=== PATIENT | male | born 1950 | race Caucasian/White ===

== ENCOUNTER 2017-02-11 19:40 | Emergency (ER) | payer MEDICARE ==
[2017-02-11] MEDS ORDERED: Ondansetron INJ* 2 MG/ML VIAL IV ONE ×2 (20:14→23:36)
[2017-02-11] MEDS: Metoclopramide IV* 5 MG/ML 2 ML VIAL IV ONE ×2 (20:25→20:31)
[2017-02-11] MEDS: NS 0.9% 1000 ML* 2,000 ML IV ONE ×2 (20:35→22:43)
[2017-02-11 21:02] LABS: Hematocrit 44 % (42-52); Hemoglobin 15.4 g/dl (14.0-18.0); Mean Corpuscular HGB Conc 35 g/dl (31-36); Mean Corpuscular Hemoglobin 31 pg (27-31); Mean Corpuscular Volume 89 fL (80-94); Mean Platelet Volume 7 um3 (7.4-10.4); Red Blood Count 4.96 10^6/ul (4.0-5.4); Red Cell Distribution Width 14 % (10.5-15); White Blood Count 13.2 10^3/ul (3.5-10.8)
[2017-02-11 21:16] LABS: BUN/Creatinine Ratio 24.1 (8-20); Calcium 9.6 mg/dL (8.6-10.3); EGFR African American 118.8 (>60); EGFR Non-African American 92.4 (>60); Globulin 3.2 g/dL (2-4); Magnesium 1.7 mg/dL (1.9-2.7); Potassium 3.9 mmol/L (3.5-5.0); Total Bilirubin 0.7 mg/dL (0.2-1.0); Total Protein 7.2 g/dL (6.4-8.9)
--- NOTE | 2017-02-11 21:29 | RAD ---
HISTORY: Vomiting COMPARISONS: February 15, 2010 VIEWS: 1: frontal portable view of the chest at 9:02 PM FINDINGS: LINES AND TUBES: None. CARDIOMEDIASTINAL SILHOUETTE: The aorta is tortuous. The cardiomediastinal silhouette is otherwise normal for portable technique. PLEURA: The costophrenic angles are sharp. No pleural abnormalities are noted. LUNG PARENCHYMA: The lungs are clear. ABDOMEN: The upper abdomen is clear. There is no subphrenic gas. BONES AND SOFT TISSUES: No bone or soft tissue abnormalities are noted. IMPRESSION: NO ACTIVE CARDIOPULMONARY DISEASE.
--- NOTE | 2017-02-11 21:30 | RAD ---
HISTORY: Vomiting COMPARISONS: None VIEWS: Frontal views of the abdomen. FINDINGS: BOWEL: There is a nonobstructive bowel gas pattern. There is a large amount of stool within the colon. CALCULI: There are no abnormal calculi. BONES AND SOFT TISSUES: Mild degenerative changes are noted OTHER FINDINGS: The lung bases are clear. There is no subphrenic gas. IMPRESSION: NONOBSTRUCTIVE BOWEL GAS PATTERN
[2017-02-11] MEDS ORDERED: Magnesium Sulfate 1 GM IV* 1 GM/100 ML BAG IV ONE (22:25)
[2017-02-11] MEDS ORDERED: Magnesium Sulfate IV* 0.5 GM/ML 2 ML VIAL (1 GM) ONE (22:35)
[2017-02-11] MEDS ORDERED: Iohexol 300* (CONTRAST) 10 ML SDV IV ONE (22:40)
[2017-02-11] MEDS ORDERED: traMADol TAB* 50 MG PO ONE (23:57)
--- NOTE | 2017-02-12 01:26 | ED ---
Sera Carpio Rebecca, scribed for Anup Chung on 02/11/17 at 2012 . Complex/Multi-Sys Presentation - HPI Summary HPI Summary: Pt is a 66 y/o M BIBA who presents to ED c/o N/V. Symptoms began this morning at 0800 and have been intermittent since onset. Upon EMS, he received a shot which improved sx. Denies diarrhea, CP, SOB, fever and abdominal pain. PSHx hernia repair. Pt reports that he recently lost multiple fingers from the L hand and has been taking Oxycodone with his last dose at 0600 this morning. - History Of Current Complaint Chief Complaint: EDNauseaVomitDiarrh Time Seen by Provider: 02/11/17 19:49 Hx Obtained From: Patient Onset/Duration: Lasting Hours, Still Present Severity Currently: Severe - 01/22 Aggravating Factor(s): Nothing Alleviating Factor(s): Shot given by EMS en route Associated Signs And Symptoms: Negative: SOB, Chest Pain, Diarrhea, Abdominal Pain, Fever - Allergies/Home Medications Allergies/Adverse Reactions: Allergies Allergy/AdvReac Type Severity Reaction Status Date / Time No Known Allergies Allergy Verified 02/11/17 19:53 PMH/Surg Hx/FS Hx/Imm Hx GI History: Reports: Other GI Disorders - Hx hernia History: Reports: Hx Kidney Stones Psychiatric History: Reports: Hx Anxiety, Hx Depression Infectious Disease History: No Infectious Disease History: Denies: Traveled Outside the [place] in Last 30 Days - Family History Known Family History: Positive: Cardiac Disease, Hypertension, Other - Prostate CA - Social History Lives: With Family Substance Use Type: Reports: None Smoking Status (MU): Former Smoker Review of Systems Negative: Fever Negative: Chest Pain Negative: Shortness Of Breath Positive: Vomiting, Nausea. Negative: Abdominal Pain, Diarrhea All Other Systems Reviewed And Are Negative: Yes Physical Exam - Summary Physical Exam Summary: Appearance: Well appearing, no pain distress Skin: warm, dry, reflects adequate perfusion Head/face: normal Eyes: EOMI, DIEUDONNE ENT: dry mucous membranes Neck: supple, nontender Respiratory: CTA, breath sounds present Cardiovascular: RRR, pulses symmetrical Abdomen: nontender, soft Bowel: present Musculoskeletal: strength/ROM intact, splint over the left forearm and hand Neuro: normal, sensory motor intact, A&Ox3 Triage Information Reviewed: Yes Vital Signs On Initial Exam: Initial Vitals Temp Pulse Resp BP Pulse Ox 97.7 F 90 20 136/71 97 02/11/17 19:48 02/11/17 19:48 02/11/17 19:48 02/11/17 19:48 02/11/17 19:48 Vital Signs Reviewed: Yes Diagnostics - Vital Signs Vital Signs Temp Pulse Resp BP Pulse Ox 02/11/17 19:48 97.7 F 90 20 136/71 97 - Laboratory Lab Results: Lab Results 02/11/17 02/11/17 02/11/17 Range/Units 20:54 20:54 20:54 WBC 13.2 H (3.5-10.8) 10^3/ul RBC 4.96 (4.0-5.4) 10^6/ul Hgb 15.4 (14.0-18.0) g/dl Hct 44 (42-52) % MCV 89 (80-94) fL MCH 31 (27-31) pg MCHC 35 (31-36) g/dl RDW 14 (10.5-15) % Plt Count 270 (150-450) 10^3/ul MPV 7 L (7.4-10.4) um3 Neut % (Auto) 88.5 H (38-83) % Lymph % (Auto) 4.7 L (25-47) % [place] % (Auto) 6.6 (1-9) % Eos % (Auto) 0 (0-6) % Baso % (Auto) 0.2 (0-2) % Absolute Neuts (auto) 11.7 H (1.5-7.7) 10^3/ul Absolute Lymphs (auto) 0.6 L (1.0-4.8) 10^3/ul Absolute Monos (auto) 0.9 H (0-0.8) 10^3/ul Absolute Eos (auto) 0 (0-0.6) 10^3/ul Absolute Basos (auto) 0 (0-0.2) 10^3/ul Absolute Nucleated RBC 0 10^3/ul Nucleated RBC % 0 INR (Anticoag Therapy) 0.94 (0.89-1.11) APTT 26.7 (26.0-36.3) seconds Sodium 134 (133-145) mmol/L Potassium 3.9 (3.5-5.0) mmol/L Chloride 103 (101-111) mmol/L Carbon Dioxide 22 (22-32) mmol/L Anion Gap 9 (2-11) mmol/L BUN 20 (6-24) mg/dL Creatinine 0.83 (0.67-1.17) mg/dL Est GFR ( Amer) 118.8 (>60) Est GFR (Non-Af Amer) 92.4 (>60) BUN/Creatinine Ratio 24.1 H (8-20) Glucose 139 H (70-100) mg/dL Lactic Acid (0.5-2.0) mmol/L Calcium 9.6 (8.6-10.3) mg/dL Magnesium 1.7 L (1.9-2.7) mg/dL Total Bilirubin 0.70 (0.2-1.0) mg/dL AST 21 (13-39) U/L ALT 25 (7-52) U/L Alkaline Phosphatase 74 (34-104) U/L Troponin I 0.00 (<0.04) ng/mL Total Protein 7.2 (6.4-8.9) g/dL Albumin 4.0 (3.2-5.2) g/dL Globulin 3.2 (2-4) g/dL Albumin/Globulin Ratio 1.3 (1-3) Lipase 15 (11.0-82.0) U/L 10/30/17 Range/Units 20:54 WBC (3.5-10.8) 10^3/ul RBC (4.0-5.4) 10^6/ul Hgb (14.0-18.0) g/dl Hct (42-52) % MCV (80-94) fL MCH (27-31) pg MCHC (31-36) g/dl RDW (10.5-15) % Plt Count (150-450) 10^3/ul MPV (7.4-10.4) um3 Neut % (Auto) (38-83) % Lymph % (Auto) (25-47) % [place] % (Auto) (1-9) % Eos % (Auto) (0-6) % Baso % (Auto) (0-2) % Absolute Neuts (auto) (1.5-7.7) 10^3/ul Absolute Lymphs (auto) (1.0-4.8) 10^3/ul Absolute Monos (auto) (0-0.8) 10^3/ul Absolute Eos (auto) (0-0.6) 10^3/ul Absolute Basos (auto) (0-0.2) 10^3/ul Absolute Nucleated RBC 10^3/ul Nucleated RBC % INR (Anticoag Therapy) (0.89-1.11) APTT (26.0-36.3) seconds Sodium (133-145) mmol/L Potassium (3.5-5.0) mmol/L Chloride (101-111) mmol/L Carbon Dioxide (22-32) mmol/L Anion Gap (2-11) mmol/L BUN (6-24) mg/dL Creatinine (0.67-1.17) mg/dL Est GFR ( Amer) (>60) Est GFR (Non-Af Amer) (>60) BUN/Creatinine Ratio (8-20) Glucose (70-100) mg/dL Lactic Acid 2.7 H* (0.5-2.0) mmol/L Calcium (8.6-10.3) mg/dL Magnesium (1.9-2.7) mg/dL Total Bilirubin (0.2-1.0) mg/dL AST (13-39) U/L ALT (7-52) U/L Alkaline Phosphatase (34-104) U/L Troponin I (<0.04) ng/mL Total Protein (6.4-8.9) g/dL Albumin (3.2-5.2) g/dL Globulin (2-4) g/dL Albumin/Globulin Ratio (1-3) Lipase (11.0-82.0) U/L Result Diagrams: 02/11/17 20:54 02/11/17 20:54 Lab Statement: Any lab studies that have been ordered have been reviewed, and results considered in the medical decision making process. - Radiology CXR Xray Interpretation: No Acute Changes - NO ACTIVE CARDIOPULMONARY DISEASE. ED physician reviewed this radiology report and agrees. Radiology Interpretation Completed By: Radiologist KUB Xray Interpretation: No Acute Changes - NONOBSTRUCTIVE BOWEL GAS PATTERN ED physician reviewed this radiology report and agrees. Radiology Interpretation Completed By: Radiologist - CT CT abd/pel CT Interpretation: No Acute Changes - There is no bowel obstruction, free air, or free fluid. Normal appendix visualized. Sigmoid diverticulosis and some wall thickening of the proximal to mid sigmoid. Questionable adjacent fatty stranding. Although the findings are borderline, the possibility of very mild or very early sigmoid diverticulitis should be considered. Is there pain in the left lower quadrant? CT Interpretation Completed By: Radiologist - EKG 2029 Cardiac Rate: NL - 90 bpm EKG Rhythm: Sinus Rhythm EKG Interpretation: No acute changes Re-Evaluation - Re-Evaluation First Eval Re-Evaluation Time: 23:34 Change: Unchanged - Still nauseous. Complex Multi-Symp Course/Dx Assessment/Plan: Pt is a 66 y/o M BIBA who presents to ED c/o N/V. Symptoms began this morning at 0800 and have been intermittent since onset. Upon EMS, he received a shot which improved sx. Denies diarrhea, CP, SOB, fever and abdominal pain. PSHx hernia repair. Pt reports that he recently lost multiple fingers from the L hand and has been taking Oxycodone with his last dose at 0600 this morning. CXR, KUB and CT Abd/Pel reveal no acute findings. EKG is sinus rhythm with no acute changes. Pt denies abdominal pain and sx are unlikely due to diverticulitis so no Abx will be given. In the ED course, pt was given Reglan, Ultram, Zofran and fluids which improved sx. Pt will be D/C to home with Dx of nausea and vomiting with Rx for Zofran and Ultram with a follow up with his PCP. He understands and agrees. Pt medications reviewed. - Diagnoses Differential Diagnoses/HQI/PQRI: Other - diverticulitis/uti/gasteroenteritis/ vomiting/sbo Provider Diagnoses: Nausea and vomiting, Colitis Discharge - Discharge Plan Condition: Stable Disposition: HOME Prescriptions: Ondansetron ODT TAB* [Zofran 4 MG Odt TAB*] 4 mg PO Q8H PRN #20 tab.odt MDD 3 PRN Reason: Vomiting traMADol TAB* [Ultram*] 50 mg PO TID #12 tab MDD 3 Patient Education Materials: Acute Nausea and Vomiting (ED) Referrals: No Primary Care Phys,NOPCP [Primary Care Provider] - [facility] [place] PHYSICIAN REFERRAL [Outside] Additional Instructions: RETURN TO ED FOR ANY RETURNING OR WORSENING SYMPTOMS. The documentation as recorded by the Sera wright Rebecca accurately reflects the service I personally performed and the decisions made by Juliet carrasco Emmanuel.
[2017-02-12 01:42] VITALS: BP 136/93
--- NOTE | 2017-02-12 07:46 | RAD ---
CLINICAL HISTORY: Abdominal pain, vomiting, small bowel obstruction COMPARISON: None TECHNIQUE: Multiple contiguous axial CT scans were obtained of the abdomen and pelvis after the administration of intravenous contrast. Coronal and sagittal multiplanar reformations are submitted for review. Oral contrast was not administered. Delayed images were obtained through the abdomen and pelvis. FINDINGS: LUNG BASES: The lung bases are clear. LIVER: The liver is diffusely low in attenuation compared to the spleen. There are no focal hepatic parenchymal masses. BILE DUCTS: There is no intrahepatic or extrahepatic biliary dilatation. GALLBLADDER: The gallbladder is not visualized. Surgical clips are noted in the gallbladder fossa. PANCREAS: The pancreas is normal, without mass or ductal dilatation. SPLEEN: Normal in size and appearance. UPPER GI TRACT: Evaluation of the gastrointestinal tract is limited by incomplete gastric distention. The upper GI tract is unremarkable. SMALL BOWEL AND MESENTERY: The small bowel is normal in contour, course, and caliber. There is no obstruction or dilatation. COLON: There is extensive diverticulosis of the descending and sigmoid colon. There is mucosal thickening with mild pericolonic A changes at the proximal sigmoid colon. There is no likely the fluid collection to suggest abscess. ADRENALS: Normal bilaterally. KIDNEYS: There is low-attenuation lesion of the midpole the right kidney that does not enhance most consistent with a small renal cyst. BLADDER: The bladder is smooth in contour. PELVIC ORGANS: The prostate gland is normal. The seminal vesicles are symmetric. AORTA: There is calcific atherosclerotic disease of the abdominal aorta and its branches, without aneurysmal dilatation IVC: Unremarkable LYMPH NODES: There is no lymphadenopathy by size criteria. ABDOMINAL WALL: There is no evidence for abdominal wall hernia. BONES AND SOFT TISSUES: There are mild diffuse degenerative changes. OTHER: None IMPRESSION: 1. DIVERTICULOSIS WITH MILD PERICOLONIC INFILTRATE CHANGE SUGGESTIVE OF EARLY DIVERTICULITIS. 2. FATTY INFILTRATION OF THE LIVER.
== END 2017-02-12 01:35 | disposition home or self-care (01) ==
LOC: ED 19:40
DX: R11.2 Nausea with vomiting, unspecified (principal); K52.9 Noninfective gastroenteritis and colitis, unspecified; Z87.891 Personal history of nicotine dependence; F41.9 Anxiety disorder, unspecified; F32.9 Major depressive disorder, single episode, unspecified; Z87.442 Personal history of urinary calculi; K57.90 Diverticulosis of intestine, part unspecified, without perforation or abscess without bleeding; K76.0 Fatty (change of) liver, not elsewhere classified
CPT/HCPCS: 36415; 71010; 74000; 74177; 80053; 83605; 83690; 83735; 84484; 85025; 85610; 85730; 93005; 96360; 96374; 96375; 99284; A9270-GY; J2405; J2765; J3475; Q9967

== ENCOUNTER 2019-05-31 13:33 | Emergency (ER) | payer MEDICARE ==
[2019-05-31 14:17] VITALS: BP 127/81
[2019-05-31] MEDS ORDERED: Lidocaine 1% MPF ** 5 ML VIAL INJ ONE (14:57)
--- NOTE | 2019-05-31 15:00 | UC ---
Laceration HPI - HPI Summary HPI Summary: patient tripped going up stairs and hit head on floor, lacerated L eyebrow. denies LOC, no neck pain, no headache - History Of Current Complaint Chief Complaint: UCLaceration Stated Complaint: LACERATION OVER LT EYE Time Seen by Provider: 05/31/19 14:52 Hx Obtained From: Patient Laceration Location: Face Mechanism Of Injury: Blunt Trauma Onset/Duration: Sudden Onset Severity: Moderate Pain Intensity: 8 Aggravating Factors: Nothing - Allergies/Home Medications Allergies/Adverse Reactions: Allergies Allergy/AdvReac Type Severity Reaction Status Date / Time No Known Allergies Allergy Verified 02/11/17 19:53 Home Medications: Home Medications Aspirin TAB* [Aspirin 325 MG TAB*] 1 tab PO DAILY 05/31/19 [History Confirmed ] PMH/Surg Hx/FS Hx/Imm Hx Previously Healthy: Yes Cardiovascular History: Deep Vein Thrombosis - leg - Surgical History Surgical History: Yes Surgery Procedure, Year, and Place: Prostate - Family History Known Family History: Positive: Cardiac Disease, Hypertension, Other - Prostate CA - Social History Occupation: Retired Lives: With Family Alcohol Use: Occasionally Substance Use Type: None Smoking Status (MU): Former Smoker - Immunization History Most Recent Tetanus Shot: unknown Review of Systems All Other Systems Reviewed And Are Negative: Yes Constitutional: Positive: Negative Skin: Positive: Other - laceration L eyebrow Eyes: Negative: Blurred Vision, Eye Redness, Photophobia Respiratory: Positive: Negative Cardiovascular: Positive: Negative. Negative: Palpitations, Chest Pain Neurological/Mental Status: Positive: Negative. Negative: Headache Psychological: Positive: Negative Is Patient Immunocompromised?: No Physical Exam Triage Information Reviewed: Yes Appearance: Well-Appearing, No Pain Distress, Well-Nourished Vital Signs: Initial Vital Signs Temp 98.6 F 05/31/19 14:12 Pulse 91 05/31/19 14:12 Resp 16 05/31/19 14:12 BP 127/81 05/31/19 14:12 Pulse Ox 100 05/31/19 14:12 Vital Signs Reviewed: Yes Eye Exam: Normal - EOMs intact Eyes: Positive: Conjunctiva Clear Neck exam: Normal Neck: Positive: Supple, Nontender Respiratory Exam: Normal Respiratory: Positive: Lungs clear Cardiovascular Exam: Normal Cardiovascular: Positive: RRR Neurological Exam: Normal Neurological: Positive: Alert Psychological Exam: Normal Skin: Positive: Other - 2 cm linear lac L eye brow with minimal bleeding, thre is ecchymosis lower orbit, minimal swelling lids Laceration Repair - Laceration Repair 1 Description: Linear Laceration Size After Repair: Length (cm) - 2cm, Width (mm) - 4mm, Depth (mm) - 3mm Modified For Repair: No Type Injection: Local Anesthesia Used: 1.0% Lido Irrigation With Pressure Irrigation Device: Yes Closure Material: Sutures Closure Method: Single Layer Suture Of: Skin Suture Type: Nylon - four 5.0 nylon suturs placed Laceration Course/Dx - Differential Dx - Laceration/Wound Differental Diagnoses: Abrasion, Laceration, Other - LOC, head injury, neck injury - Diagnosis Provider Diagnosis: Laceration Discharge ED - Sign-Out/Discharge Documenting (check all that apply): Patient Departure All imaging exams completed and their final reports reviewed: No Studies - Discharge Plan Condition: Good Disposition: HOME Patient Education Materials: Concussion (ED), Facial Laceration (ED) Referrals: Heath Mills MD [Primary Care Provider] - Additional Instructions: keep wound clean and dry apply thin spread of bacitracin ointment every day and cover with clean bandaid apply ice packs for 2 days and use Tylenol as directed for pain Return for suture removal in 5 days You demonstrate no symptoms of concussion at this time , however: report to ER if you experience headache, neck pain or signs of concussion - Billing Disposition and Condition Condition: GOOD Disposition: Home
== END 2019-05-31 16:10 | disposition home or self-care (01) ==
LOC: UCEAST 13:33
DX: S01.112A Laceration without foreign body of left eyelid and periocular area, initial encounter (principal); W01.198A Fall on same level from slipping, tripping and stumbling with subsequent striking against other object, initial encounter; Y92.9 Unspecified place or not applicable; Z87.891 Personal history of nicotine dependence; Z86.718 Personal history of other venous thrombosis and embolism; Z79.82 Long term (current) use of aspirin
CPT/HCPCS: 12011; 99211; G0463